=== PATIENT | male | born 1985 | race Caucasian/White ===

== ENCOUNTER 2019-12-25 20:22 | Emergency (ER) | payer MEDICAID ==
[~2019-12-25] VITALS: Ht 185.4 cm; Wt 85.0 kg
[2019-12-25 20:25] VITALS: BP 138/90
[2019-12-25 21:31] LABS: ALBUMIN 3.9 g/dL (3.4-5.0); ANION GAP 2 mmol/L (5-15); CALCIUM 8.5 mg/dL (8.5-10.1); CHLORIDE 106 mmol/L (98-107); SALICYLATE LEVEL 2.5 mg/dL (2.8-20.0)
[2019-12-25 21:32] LABS: CREATININE 1.23 mg/dL (0.7-1.3)
[2019-12-25 21:36] LABS: BASOPHILS % (AUTO) 1 % (0-1); EOSINOPHILS % (AUTO) 4 % (1-7); LYMPHOCYTES % (AUTO) 25 % (22-44); MEAN CORPUSCULAR HEMOGLOBIN 30.5 pg (27.5-34.5); MEAN CORPUSCULAR HGB CONC 33.8 g/dL (33.2-36.2); MEAN PLATELET VOLUME 7.3 fL (7.4-10.4); MONOCYTES % (AUTO) 10 % (2-9); NEUTROPHILS % (AUTO) 60 % (42-75); PLATELET COUNT 315 x10^3/uL (130-400); RED BLOOD COUNT 4.92 x10^6/uL (4.38-5.82); RED CELL DISTRIBUTION WIDTH 13.6 % (9.4-14.8)
[2019-12-25 22:02] LABS: MD NO
--- NOTE | 2019-12-25 23:04 | NUR ---
nil x 2
== END 2019-12-25 23:20 | disposition left against medical advice (07) ==
LOC: ED 23:05
DX: R07.9 Chest pain, unspecified (principal); F41.9 Anxiety disorder, unspecified; R94.31 Abnormal electrocardiogram [ECG] [EKG]
CPT/HCPCS: 36415; 71045; 80048; 80307; 82040; 85025; 93005; 99285

== ENCOUNTER 2020-01-24 06:36 | Emergency (ER) | payer MEDICAID ==
[~2020-01-24] VITALS: Ht 185.4 cm; Wt 86.3 kg
[2020-01-24 08:14] LABS: BASOPHILS % (AUTO) 1 % (0-1); EOSINOPHILS % (AUTO) 4 % (1-7); LYMPHOCYTES % (AUTO) 19 % (22-44); MEAN CORPUSCULAR HEMOGLOBIN 30.9 pg (27.5-34.5); MEAN CORPUSCULAR HGB CONC 34.2 g/dL (33.2-36.2); MEAN PLATELET VOLUME 7.5 fL (7.4-10.4); MONOCYTES % (AUTO) 9 % (2-9); NEUTROPHILS % (AUTO) 68 % (42-75); PLATELET COUNT 281 x10^3/uL (130-400); RED CELL DISTRIBUTION WIDTH 13.8 % (9.4-14.8)
[2020-01-24 08:20] LABS: MD NO
[2020-01-24 08:25] LABS: ALBUMIN 3.8 g/dL (3.4-5.0); ANION GAP 4 mmol/L (5-15); CALCIUM 8.4 mg/dL (8.5-10.1); CHLORIDE 107 mmol/L (98-107); CREATININE 0.99 mg/dL (0.7-1.3)
[2020-01-24 08:28] LABS: TROPONIN I < 0.015 ng/mL (0.000-0.045)
--- NOTE | 2020-01-24 09:08 | NUR ---
PT C/O RECENT CHEST PAIN THAT IS NOW RESOLVED. PT STATES HE FEELS A LOT OF ANXIETY WITH NOT BEING ABLE TO WORK AND "ALL THE PANDEMIC STUFF". PT HAS A FEELING OF PRESSURE ON THE LEFT SIDE OF HIS HEAD. PT STATES IT FEELS LIKE HIS HEAD IS "CLOGGED". PT HAS ALSO BEEN EXPERIENCING INTERMITTANT TINNITUS. PT DENIES DIZZINESS, SOB, CP AT THIS TIME.
--- NOTE | 2020-01-24 11:46 | NUR ---
PSYCH PROVIDER BEDSIDE
[2020-01-24] MEDS ORDERED: PROPRANOLOL 10 MG TABLET PO SCH (12:00)
[2020-01-24] MEDS ORDERED: PROPRANOLOL 10 MG TABLET PO ONE (12:30)
[2020-01-24 13:17] VITALS: BP 133/87
== END 2020-01-24 13:19 | disposition home or self-care (01) ==
LOC: ED 08:26
DX: R07.89 Other chest pain (principal); F41.1 Generalized anxiety disorder; R44.3 Hallucinations, unspecified
CPT/HCPCS: 36415; 71045; 80048; 82040; 84484; 85025; 93005; 99285

== ENCOUNTER 2020-05-12 23:23 | Emergency (ER) | payer MEDICAID ==
[~2020-05-12] VITALS: Ht 185.4 cm; Wt 82.0 kg
[2020-05-13 01:08] VITALS: BP 133/65
== END 2020-05-13 01:10 | disposition home or self-care (01) ==
LOC: ED 23:45
DX: M26.623 Arthralgia of bilateral temporomandibular joint (principal); R51.9 Headache, unspecified; M54.2 Cervicalgia; H92.01 Otalgia, right ear; R00.0 Tachycardia, unspecified
CPT/HCPCS: 93005; 99283

== ENCOUNTER 2020-09-23 15:18 | Emergency (ER) | payer MEDICAID ==
[~2020-09-23] VITALS: Ht 188 cm; Wt 85.0 kg
[2020-09-23] MEDS ORDERED: LIDOCAINE-MPF 1%, 5ML INFIL ONE (16:30)
[2020-09-23] MEDS ORDERED: DIPH,PERTUSS(ACELL),TET VAC/PF 0.5 ML IM-VACC ONE ×2 (16:30→20:39)
--- NOTE | 2020-09-23 19:24 | NUR ---
TASK RN: VS UPDATED.
[2020-09-23] MEDS ORDERED: LIDOCAINE-MPF 1%, 5ML ONE (20:06)
[2020-09-23] MEDS ORDERED: HYDROcodone/APAP 10/325 MG TABLET PO ONE (20:30)
[2020-09-23] MEDS ORDERED: NEOSPORIN OINT. PKT 1 PACKET ONE (20:39)
[2020-09-23] MEDS ORDERED: HYDROcodone/APAP 10/325 MG TABLET ONE (20:39)
[2020-09-23] MEDS ORDERED: FAMOTIDINE 20 MG TABLET ONE (20:42)
[2020-09-23] MEDS ORDERED: CLINDAMYCIN 300 MG CAPSULE ONE (20:42)
[2020-09-23] MEDS ORDERED: FAMOTIDINE 20 MG TABLET PO ONE (21:00)
[2020-09-23] MEDS ORDERED: CLINDAMYCIN 150 MG CAPSULE PO ONE (21:00)
[2020-09-23 21:05] VITALS: BP 129/78
--- NOTE | 2020-09-23 21:15 | NUR ---
I/D DONE BY PROVIDER. PER ERP CLEANED WITH NS, PLACED NEOSPORIN AND DRESSED WITH GAUZE
== END 2020-09-23 21:20 | disposition home or self-care (01) ==
LOC: ED 20:00
DX: L03.211 Cellulitis of face (principal); L02.01 Cutaneous abscess of face
CPT/HCPCS: 10060; 90471; 90715